=== PATIENT | female | born 1995 | race Hispanic/Latino ===

== ENCOUNTER 2019-04-04 05:36 | Day surgery (SDC) | payer MEDICAID ==
[2019-04-03 13:44] VITALS: BP 104/60
[2019-04-03 13:48] LABS: BASOPHILS % (AUTO) 0.6 % (0.0-5.0); EOSINOPHILS % (AUTO) 1.9 % (0.0-8.0); HEMATOCRIT 39.5 % (36-48); LYMPHOCYTES % (AUTO) 24.1 % (21.0-51.0); MEAN CORPUSCULAR HEMOGLOBIN 28.1 pg (27.0-33.0); MEAN CORPUSCULAR HGB CONC 32.4 g/dL (32.0-36.0); MEAN CORPUSCULAR VOLUME 86.6 fL (79-99); MONOCYTES % (AUTO) 4.7 % (3.0-13.0); NEUTROPHILS % (AUTO) 68.6 % (40.0-77.0); PLATELET COUNT (AUTO) 304 K/uL (130-400); RED BLOOD CELL COUNT(AUTO) 4.56 MIL/uL (4.00-5.50); RED CELL DISTRIBUTION WIDTH 12.5 % (11.0-15.5); WHITE BLOOD COUNT (AUTO) 8.3 K/uL (4.8-10.8)
[~2019-04-04] VITALS: Ht 165.1 cm; Wt 77.3 kg
[2019-04-04 05:50] VITALS: BP 125/70
[2019-04-04] MEDS ORDERED: LACTATED RINGERS 1000ML 1,000 ML IV SCH (06:00)
[2019-04-04] MEDS ORDERED: LIDOCAINE PF 2% 5ML ABBOJECT ONE (06:25)
[2019-04-04] MEDS ORDERED: MIDAZOLAM HCL 1 MG/ML 2ML VIAL ONE ×3 (06:26→11:59)
[2019-04-04] MEDS ORDERED: FENTANYL CITRATE PF 50 MCG/1 ML 2ML VIAL ONE (06:26)
[2019-04-04] MEDS ORDERED: PROPOFOL 10 MG/ML 20ML VIAL IV ONE (06:26)
[2019-04-04] MEDS ORDERED: OXYTOCIN-LR 20 UNITS/1000 ML 1,000 ML IV ONE (06:46)
[2019-04-04] MEDS ORDERED: ONDANSETRON HCL 4 MG/2 ML VIAL ONE (06:55)
[2019-04-04] MEDS ORDERED: OXYTOCIN-LR 20 UNITS/1000 ML 2,000 ML IV ONE (07:12)
[2019-04-04] MEDS ORDERED: MEPERIDINE-PF 25 MG/ML SYG ONE ×4 (07:51→11:59)
[2019-04-04 08:20] VITALS: BP 129/82
--- NOTE | 2019-04-04 08:20 | NUR ---
ASSESSMENT RECEIVED PT FROM [employer]. PT AAOX3. KATHY PAD DRY AND INTACT. NO BLEEDING NOTED. AT BEDSIDE. PITOCIN ALREADY INFUSED PER NURSE IN REPORT.
[2019-04-04 08:35] VITALS: BP 124/81
[2019-04-04 09:00] VITALS: BP 124/70
--- NOTE | 2019-04-04 09:10 | NUR ---
DISCHARGE ORAL AND WRITTEN DISCHARGE INSTRUCTIONS GIVEN TO PT AND PTS ALONG WITH PRESCRIPTION. NO OTHER QUESTIONS AT THIS TIME
[2019-04-04] MEDS ORDERED: SODIUM BICARB 50MEQ 50ML VIAL ONE (10:35)
[2019-04-04] MEDS ORDERED: HEPARIN SODIUM 1000UNIT/ML 10ML VIAL ONE (10:35)
[2019-04-04] MEDS ORDERED: IOHEXOL-350 50ML VIAL IV ONE (10:35)
[2019-04-04] MEDS ORDERED: IOHEXOL 350 MG/ML 100ML INFUS..BTL IV ONE (10:35)
[2019-04-04] MEDS ORDERED: NITROGLYCERIN 1 MG/VIAL VIAL IV ONE (10:35)
[2019-04-04] MEDS ORDERED: LIDOCAINE HCL 2% 20ML ONE (10:36)
== END 2019-04-04 09:11 | disposition home or self-care (01) ==
LOC: DAH 05:36
PROVIDERS: ATTEND Obstetrics & Gynecology
DX: O02.1 Missed abortion (principal); Z3A.16 16 weeks gestation of pregnancy; Z80.8 Family history of malignant neoplasm of other organs or systems
CPT/HCPCS: 36415; 59821; 85025; 86850; 86900; 86901; A4222; A4223; A4663; A6260; J1644 ×3; J2001; J2175 ×4; J2250 ×3; J2405; J2590 ×2; J2704; J3010; J3490 ×3; J7120 ×2; Q9967 ×2

== ENCOUNTER 2020-03-13 20:47 | Emergency (ER) | payer MEDICAID ==
[2020-03-13 21:22] LABS: BASOPHILS % (AUTO) 0.4 % (0.0-5.0); EOSINOPHILS % (AUTO) 0.8 % (0.0-8.0); HEMATOCRIT 40.5 % (36-48); LYMPHOCYTES % (AUTO) 25.6 % (21.0-51.0); MEAN CORPUSCULAR HEMOGLOBIN 29.1 pg (27.0-33.0); MEAN CORPUSCULAR HGB CONC 33.3 g/dL (32.0-36.0); MEAN CORPUSCULAR VOLUME 87.3 fL (79-99); MONOCYTES % (AUTO) 7.2 % (3.0-13.0); NEUTROPHILS % (AUTO) 65.7 % (40.0-77.0); PLATELET COUNT (AUTO) 378 K/uL (130-400); RED BLOOD CELL COUNT(AUTO) 4.64 MIL/uL (4.00-5.50); RED CELL DISTRIBUTION WIDTH 12.6 % (11.0-15.5); WHITE BLOOD COUNT (AUTO) 7.6 K/uL (4.8-10.8)
[2020-03-13 21:36] LABS: APPEARANCE,URINE SL CLOUDY (CLEAR); BILIRUBIN,URINE NEGATIVE (NEGATIVE); COLOR,URINE YELLOW (YELLOW); GLUCOSE, URINE (UA) NEGATIVE (NEGATIVE); KETONES,URINE NEGATIVE (NEGATIVE); LEUKOCYTE ESTERASE ,URINE SMALL (NEGATIVE); NITRATE,URINE NEGATIVE (NEGATIVE); OCCULT BLOOD,URINE MODERATE (NEGATIVE); PH,URINE 6.5 (5.0-8.0); PROTEIN,URINE NEGATIVE (NEGATIVE); UROBILINOGEN,URINE 0.2 mg/dL (0.2-1.0)
[2020-03-13 21:38] LABS: HCG,QUAL RESULT POSITIVE (NEGATIVE)
[2020-03-13 21:39] LABS: ALBUMIN 3.1 g/dL (3.5-5.0); BILIRUBIN,TOTAL 0.1 mg/dL (0.2-1.0); CREATININE 0.6 mg/dL (0.5-1.5); POTASSIUM 3.4 mmol/L (3.5-5.1); TOTAL PROTEIN, SERUM 8.1 g/dL (6.0-8.3)
[2020-03-13 21:49] LABS: BACTERIA,URINE Few /HPF (None Seen); SQUAMOUS EPITHELIAL CELL,UR Few /HPF (0-2)
== END 2020-03-13 23:41 | disposition home or self-care (01) ==
LOC: EDH 20:47
DX: O20.0 Threatened abortion (principal); Z90.49 Acquired absence of other specified parts of digestive tract; Z3A.01 Less than 8 weeks gestation of pregnancy
CPT/HCPCS: 36415; 76801; 80053; 81001; 81025; 84702; 85025; 87088